=== PATIENT | male | born 1950 | race Caucasian/White ===

== ENCOUNTER 2021-08-28 12:41 | Emergency (ER) | payer OTHER, SELFPAY ==
--- NOTE | ~2021-08-28 | CT_ITS ---
EXAMINATION: CT thoracic lumbar wo con DATE: 08/28/2021 14:33 INDICATION: Upper and mid back pain. TECHNIQUE: Computed tomography (CT) of the thoracic and lumbar spine was performed without intravenou s contrast. Automated exposure control and iterative reconstruction technique were employed. The dose -length product was 416.25 mGy-cm. 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 There is mild scarring at the lung apices. There is 6 degrees levocurvature of upper thoracic spine. There is 2 mm retrolisthesis of C6 on C7. There is moderate degenerative disc disease at C6-C7. Vertebral b refugio heights are normal in thoracic spine. There is mildly decreased disc height from T2-T3 through T9 -T10. There is multilevel mild facet joint osteoarthritis and thoracic spine. There is mild bilateral neural foraminal stenosis at T9-T10 and T10-T11. CT LUMBAR SPINE: There is 3 mm anterolisthesis of L3 on L4. There is a chronic burst fracture of L1 w ith 2/5 loss of height and retropulsion of bone 3 mm into central spinal canal. There is mildly decre ased disc height at L1-L2. The following disc levels are specifically discussed: L1-L2: The disc is bulging. There is mild bilateral facet joint osteoarthritis. There is no neural fo raminal stenosis. There is mild central canal stenosis. L2-L3: The disc is bulging. There is mild bilateral facet joint osteoarthritis. There is mild bilater al neural foraminal stenosis. There is mild central canal stenosis. L3-L4: The disc is bulging. There is severe bilateral facet joint osteoarthritis. There is mild bilat eral neural foraminal stenosis. There is mild central canal stenosis. L4-L5: The disc is bulging. There is severe bilateral facet joint osteoarthritis. There is mild bilat eral neural foraminal stenosis. There is mild central canal stenosis. L5-S1: The disc is bulging. There is severe bilateral facet joint osteoarthritis. There is mild bilat eral neural foraminal stenosis. There is mild central canal stenosis. IMPRESSION: 1. No acute fracture. 2. Mild thoracic and lumbar spondylosis. 3. 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 Reviewed, dictated and finalized at location A.
--- NOTE | ~2021-08-28 | XR_ITS ---
EXAMINATION: XR thoracic spine 3V DATE: 08/28/2021 13:38 INDICATION: Back pain. TECHNIQUE: 3 views of thoracic spine were obtained. COMPARISON: None. FINDINGS: Bone alignment is normal. There is a compression fracture of L1 with 2/5 loss of height, li yue chronic. There is mildly decreased disc height at multiple levels. There are endplate osteophyte s at all levels. IMPRESSION: 1. Mild thoracic spondylosis. 2. L1 compression fracture, likely chronic. Reviewed, dictated and finalized at location A.
[2021-08-28 13:02] VITALS: BP 124/75; PULSE 63; RESP 18; TEMP 36.8; O2SAT 100
--- NOTE | 2021-08-28 14:09 | ED.BACK ---
HPI - Back Pain/Injury General Chief Complaint: Back Pain/Injury <Cait Roman PA-C - Last Filed: 08/28/21 20:28> Stated Complaint: back pain <KEIKO Taveras Last Filed: 08/28/21 20:28> Time Seen by Provider: 08/28/21 13:59 <KEIKO Taveras Last Filed: 08/28/21 20:28> Source: patient <KEIKO Taveras Last Filed: 08/28/21 20:28> Mode of arrival: ambulatory <KEIKO Taveras Last Filed: 08/28/21 20:28> Limitations: no limitations <KEIKO Taveras Filed: 08/28/21 20:28> History of Present Illness HPI Narrative: Patient is a 71-year-old male who presents the ED with report of mid back pain. Patient reports having pain for the past 4 weeks. He states he just woke up one morning with the pain. Denies any fall or direct injury. No recent strenuous activity. He does report he had a ruptured appendix with subsequent appendectomy about 6 weeks ago and his health has been declining since then. He had the surgery done at [facility]. Patient denies any low back pain, chest pain, shortness of breath, abdominal pain, nausea, vomiting, weakness, numbness, bowel or bladder incontinence. <KEIKO Taveras Last Filed: 08/28/21 20:28> Related Data Allergies/Adverse Reactions: Allergies Allergy/AdvReac Type Severity Reaction Status Date / Time No Known Allergies Allergy Unknown Unverified 08/28/21 13:15 <KEIKO Taveras Last Filed: 08/28/21 20:28> Review of Systems Review of Systems: CONSTITUTIONAL: Denies fever, chills, or sweats. CARDIOVASCULAR: Denies chest pain. RESPIRATORY: Denies cough or dyspnea. GASTROINTESTINAL: Denies abdominal pain, nausea, vomiting, incontinence, or diarrhea. GENITOURINARY: Denies dysuria, incontinence, or hematuria. MUSCULOSKELETAL: Reports mid back pain. Denies low back pain. NEUROLOGIC: Denies headache, numbness, or weakness. <Cait Roman PA-C - Last Filed: 08/28/21 20:28> All systems reviewed & are unremarkable except as noted in HPI and below <Cait Roman PA-C - Last Filed: 08/28/21 20:28> [facility] Past Medical History Medical History: Medical History (Updated 08/29/21 @ 00:00 by Mathew Perez) Hypertension <Cait Roman PA-C - Last Filed: 08/28/21 20:28> Surgical History Surgical History: Surgical History (Updated 08/28/21 @ 14:31 by Cait Roman PA-C) History of appendectomy <Cait Roman PA-C - Last Filed: 08/28/21 20:28> Social History Social History: Social History (Updated 08/28/21 @ 14:31 by Cait Roman PA-C) Smoking status: Current every day smoker <Cait Roman PA-C - Last Filed: 08/28/21 20:28> Exam Narrative: GENERAL: Chronically ill-appearing, thin, non-toxic, in no acute distress. HEAD: Normocephalic, atraumatic. EYES: PERRL/EOMI, conjunctivae clear bilaterally. NECK: Supple. No adenopathy, no masses. No cervical midline spinal tenderness. RESPIRATORY: Airway patent, respirations nonlabored. Clear to auscultation bilaterally, no rales, rhonchi, wheezing. CARDIOVASCULAR: Regular rate and rhythm without murmurs, rubs, or gallops. Peripheral pulses 2+ and equal bilaterally. ABDOMINAL: Soft, nontender, nondistended, no hepatosplenomegaly. Normoactive BS. MUSCULOSKELETAL: Moves all extremities. Strength/ROM intact without gross deformities. Minimal mid thoracic midline spinal tenderness to palpation. Reproducible point tenderness to paraspinal and lower trapezius muscles of left mid back just below scapula. No midline lumbar spinal tenderness. SKIN: Warm, dry, normal color. No rashes. NEURO: A&O X3. Speech clear. Cranial nerves II-XII grossly intact. Steady gait. No ataxic movements. PSYCHIATRIC: Appropriate mood and affect. Normal interaction. <Cait Roman PA-C - Last Filed: 08/28/21 20:28> Course FIELD CONSULTANT/PA Physician Supervision For this patient encounter, I reviewed the FIELD CONSULTANT or PA documentation, treat
[2021-08-28 14:43] VITALS: BP 128/80; PULSE 70; RESP 16; O2SAT 95
[2021-08-28 15:00] LABS: Basophils Absolute Auto 0.1 K/mm3 (0.0-0.1); Eosinophils Absolute Auto 0.6 K/mm3 (0-0.3); Eosinophils Percent Auto 4.2 % (0-4.4); Hematocrit 31.4 % (42.0-52.0); Hemoglobin 9.8 g/dL (14.0-18.0); Immature Granulocyte Absolute 0.07 K/mm3 (0.00-0.031); Immature Granulocyte Percent A 0.5 % (0-0.5); Lymphocytes Absolute Auto 3.72 K/mm3 (0.9-3.2); Lymphocytes Percent Auto 28.2 % (18.3-44.2); Mean Corpuscular HGB Conc 31.2 g/dl (32-36); Mean Corpuscular Hemoglobin 29.7 pg (26-34); Mean Corpuscular Volume 95.2 fl (80-100); Monocytes Absolute Auto 0.9 K/mm3 (0.1-0.6); Neutrophils Absolute Auto 7.8 K/mm3 (1.3-6.7); Neutrophils Percent Auto 59.1 % (45.5-73.1); Platelet Count Result 538 k/mm3 (150-375); Red Cell Distribution Width 17.3 % (11.5-14.5); White Blood Count 13.2 K/mm3 (4.5-10.0)
[2021-08-28 15:10] LABS: Alanine Aminotransferase 9 U/L (4-50); Albumin Level 3.6 g/dL (3.5-5.1); Alkaline Phosphatase 120 U/L (38-126); Anion Gap 9 mmol/L (8-16); Aspartate Amino Transferase 17 U/L (17-59); Bilirubin,Total 0.6 mg/dL (0.2-1.3); Blood Urea Nitrogen 32 mg/dL (9-20); Calcium 8.4 mg/dL (8.4-10.2); Carbon Dioxide 20 mmol/L (22-30); Chloride 105 mmol/L (98-107); Estimated CRCL calculation 24 ml/min; Estimated Glomerular Filt Rate 33; Glucose 96 mg/dL (65-110); Sodium 134 mmol/L (137-145)
[2021-08-28 16:20] VITALS: BP 118/70; PULSE 74; RESP 16; TEMP 36.3; O2SAT 95
[2021-08-28 17:00] VITALS: BP 120/70; PULSE 70; RESP 18; TEMP 36.3; O2SAT 95
[2021-08-28 18:00] VITALS: BP 132/70; PULSE 72; RESP 18; TEMP 36.8; O2SAT 95
== END 2021-08-28 18:19 | disposition left against medical advice (07) ==
PROVIDERS: Physician Assistant; Emergency Provider Emergency Medicine; PCP Internal Medicine Infectious Disease
DX: M54.6 Pain in thoracic spine (principal); I71.2 Thoracic aortic aneurysm, without rupture; I12.9 Hypertensive chronic kidney disease with stage 1 through stage 4 chronic kidney disease, or unspecified chronic kidney disease; N18.9 Chronic kidney disease, unspecified; D72.829 Elevated white blood cell count, unspecified; D64.9 Anemia, unspecified; F17.200 Nicotine dependence, unspecified, uncomplicated; M47.814 Spondylosis without myelopathy or radiculopathy, thoracic region; M47.816 Spondylosis without myelopathy or radiculopathy, lumbar region
CPT/HCPCS: 36415; 72072; 72128; 72131; 80053; 85025; 96365; 99284; J0131